=== PATIENT | male | born 1990 | race Two or more races ===

== ENCOUNTER 2024-06-28 04:25 | Emergency (ER) | payer MEDICAID, SELFPAY ==
[2024-06-28 04:25] VITALS: BMI 33.0
[2024-06-28 04:48] VITALS: BP 135/66; PULSE 109; RESP 18; TEMP 36.9; O2SAT 95
--- NOTE | 2024-06-28 04:53 | PD.EDRME ---
Rapid Medical Screening Exam RME Arrival date/time: 06/28/24 04:25 34 year old male present to ED for c/o of abd pain, n/v/d I have greeted and performed a focused initial assessment of this patient. A comprehensive ED assessment and evaluation of the patient, analysis of all test results, and completion of the medical decision making process will be conducted by additional ED providers. Chief Complaint: Abdominal Pain Vital signs: Vital Signs Temperature 98.5 F 06/28/24 04:48 Pulse Rate 109 H 06/28/24 04:48 Respiratory Rate 18 06/28/24 04:48 Blood Pressure 135/66 H 06/28/24 04:48 Pulse Oximetry (%) 95 06/28/24 04:48 Oxygen Delivery Method Room Air 06/28/24 04:48
[2024-06-28] MEDS: ONDANSETRON ODT 4 MG TABRAP PO (04:58)
[2024-06-28 05:18] LABS: Basophils # (Auto) 0.1 Thou/mm3 (0.0-0.2); Basophils % (Auto) 1 % (0-2.5); Eosinophils # (Auto) 0.2 Thou/mm3 (0.0-0.5); Eosinophils % (Auto) 1 % (0-10); Hematocrit 50.8 % (41.0-53.0); Immature Granulocytes % (Auto) 0 % (0-0); Immature Granulocytes Auto 0.06 Thou/mm3 (0.00-0.00); Lymphocytes # (Auto) 2.4 Thou/mm3 (1.0-4.8); Lymphocytes % (Auto) 15 % (10-50); Mean Corpuscular HGB Conc 33.5 g/dl (31.0-37.0); Mean Corpuscular Hemoglobin 28.2 pg (25.0-35.0); Mean Corpuscular Volume 84 fL (80-100); Monocytes # (Auto) 0.8 Thou/mm3 (0.0-0.8); Monocytes % (Auto) 5 % (0-12); Neutrophils # (Auto) 13.2 Thou/mm3 (1.8-7.7); Neutrophils % (Auto) 79 % (37-80); Nucleated Red Blood Cell % 0 /100 WBC (0); Platelet Count 256 Thou/mm3 (140-440); RDW Standard Deviation 37.9 fL (35.1-43.9); Red Blood Count 6.02 Miln/mm3 (4.50-5.90); White Blood Count 16.6 Thou/mm3 (3.8-10.6)
[2024-06-28 05:49] LABS: Collection Type, Urine Voided; WBC,Urine 0 /hpf (0-5)
[2024-06-28 05:55] LABS: Alanine Aminotransferase 27 U/L (10-49); Albumin, Serum 5.5 gm/dL (3.5-5.0); Albumin/Globulin Ratio 1.8 (1.2-2.2); Alkaline Phosphatase 79 U/L (46-116); Anion Gap 14 (7-16); Aspartate Amino Transferase 16 U/L (0-34); BUN/Creatinine Ratio 16 Ratio (12-20); Bilirubin,Total 0.4 mg/dL (0.3-1.2); Blood Urea Nitrogen 16 mg/dL (9-23); Calcium 10.3 mg/dL (8.3-10.6); Calcium (Corrected) 10.3 mg/dL (8.5-10.1); Carbon Dioxide 24.4 mMol/L (20.0-31.0); Chloride 100 mMol/L (98-107); Estimated Creatinine Clearance 128.3 mL/min (>60); Globulin 3.1 gm/dL (2.3-3.5); Glucose 200 mg/dL (74-106); Lipase 29 U/L (12-53); Osmolality,Calculated 282 (275-295); Potassium 3.9 mMol/L (3.4-5.1); Sodium 138 mMol/L (136-145); Total Protein 8.6 gm/dL (5.7-8.2); eGFR > 60 See Note
[2024-06-28 05:59] LABS: Bilirubin,Urine Negative (Negative); Blood,Urine Negative (Negative); Clarity,Urine Clear (Clear/Hazy); Color,Urine Lt-Yellow (Lt Yel-Yel); Glucose, Urine 4+ (Negative); Ketones,Urine 3+ (Negative); Leukocyte Esterase,Urine Negative (Negative); Nitrite,Urine Negative (Negative); PH,Urine 5.5 (5.0-7.0); Protein,Urine Trace (Neg - Trace); RBC,Urine 3 /hpf (0-3); Specific Gravity,Urine 1.044 (1.001-1.035); Squamous Epithelial Cell,Urine < 1 /hpf (0-5); Urobilinogen,Urine Negative mg/dL (0.0-1.0)
[2024-06-28 06:23] VITALS: BP 124/83; PULSE 94; RESP 18; TEMP 37.3; O2SAT 97
--- NOTE | 2024-06-28 06:28 | PD.EDABDPN ---
ED Abdominal Pain RME/HPI General Chief Complaint: Abdominal Pain Stated complaint: ABD PAIN, NAUSEA AND VOMITING X 1DAY Time seen by provider: 06/28/24 05:03 Arrival date/time: 06/28/24 04:25 34-year-old male presents emergency department complaints of nausea vomiting and diarrhea ongoing since 10 PM there are no other associated symptoms or aggravating factors no other modifying factors, patient denies taking medication before coming to ER today Limitations: no limitations RME / HPI RME / HPI narrative: 06/28/24 04:25 34 year old male present to ED for c/o of abd pain, n/v/d I have greeted and performed a focused initial assessment of this patient. A comprehensive ED assessment and evaluation of the patient, analysis of all test results, and completion of the medical decision making process will be conducted by additional ED providers. Related Data Home Medications ?Medication ?Instructions ?Recorded ?Confirmed no hx meds ##0 09/26/15 Previous Rx's ?Medication ?Instructions ?Recorded Hydrocodone/Acetaminophen * (NORCO 1 tab PO Q4H PRN pain #20 tabs 09/26/15 5/325 *) ibuprofen 600 mg tablet 600 mg PO Q6HR PRN PAIN #40 tabs 09/26/15 ibuprofen 800 mg tablet 800 mg PO TID PRN pain #30 tabs 09/28/22 ibuprofen 600 mg tablet 600 mg PO Q6H #30 tabs 06/28/24 loperamide 2 mg capsule (Imodium 2 mg PO Q6H PRN loose stool #14 06/28/24 A-D) caps ondansetron 4 mg disintegrating 4 mg PO Q8H PRN nausea and 06/28/24 tablet vomiting #10 tabs Allergies Allergy/AdvReac Type Severity Reaction Status Date / Time No Known Allergies Allergy Mild Uncoded 04/03/17 22:35 Review of Systems Review of Systems Systems Reviewed: All systems reviewed, normal except as documented Constitutional Constitutional: Reports system reviewed and no additional complaints, except as documented, Denies fever(s) and Denies headache(s) Eyes Eyes: Reports system reviewed and no additional complaints, except as documented and Denies blurry vision ENT Ears, Nose, Mouth, and Throat: Reports system reviewed and no additional complaints, except as documented, Denies headache(s), Denies nasal congestion and Denies nasal discharge Cardiovascular Cardiovascular: Reports system reviewed and no additional complaints, except as documented, Denies chest pain and Denies dyspnea Respiratory Respiratory: Reports system reviewed and no additional complaints, except as documented, Denies chest congestion, Denies cough and Denies dyspnea Gastrointestinal Gastrointestinal: Reports system reviewed and no additional complaints, except as documented and Denies abdominal pain Integumentary/Breasts Skin/Breast: Reports system reviewed and no additional complaints, except as documented and Denies rash Neurologic Neurologic: Reports system reviewed and no additional complaints, except as documented, Reports as per HPI and Denies headache(s) Past Medical History Past Medical History NEUROLOGIC: Negative Neurological Disorders CARDIAC: Negative Cardiac Disorders ED Exam General Limitations: Present no limitations General appearance: Present alert and in no apparent distress Head Head exam: Present atraumatic Eye Eye exam: Present normal appearance, PERRL and EOMI ENT ENT exam: Present normal exam, normal oropharynx and mucous membranes moist Neck Neck exam: Present normal inspection, full ROM and trachea midline Chest Chest inspection: Present normal inspection and symmetric chest wall rise Respiratory Respiratory exam: Present normal lung sounds bilaterally; Absent respiratory distress Cardiovascular Cardiovascular exam: Present regular rate, normal rhythm and normal heart sounds Abdominal Exam Abdominal exam: Present soft and normal bowel sounds; Absent distention, tenderness, guarding, rebound, rigidity, Merrill's sign or tenderness at McBurney's Point Abdominal tenderness: Absent RUQ or RLQ Extremities Exam Extremities exam: Present normal inspection and full ROM Back Exam Back exam: Present normal inspection and full ROM Neurological Exam Neurological exam: Present alert, oriented X3 and CN II-XII intact Psychiatric Psychiatric exam: Present normal affect and normal mood Skin Skin exam: Present warm, dry, intact and normal color Course Quality Measures none Orders Category Date Time Status CBC Stat Lab 06/28/24 05:04 Completed CMP [Comprehensive Metabolic Panel] Stat Lab 06/28/24 05:04 Completed Lipase Stat Lab 06/28/24 05:04 Completed UA [Urinalysis] Stat Lab 06/28/24 05:06 Completed Ondansetron Odt [Zofran Odt] Med 06/28/24 04:53 Discontinued 4 mg PO X1 ONE Vital Signs Vital signs: Vital Signs Temperature 98.5 F 06/28/24 04:48 Pulse Rate 109 H 06/28/24 04:48 Respiratory Rate 18 06/28/24 04:48 Blood Pressure 135/66 H 06/28/24 04:48 Pulse Oximetry (%) 95 06/28/24 04:48 Oxygen Delivery Method Room Air 06/28/24 04:48 O2 saturation 95% room air within normal limits Abdominal Pain MDM MDM Narrative MDM Narrative:: 34-year-old male presents emergency department complaints of nausea vomiting and diarrhea ongoing since 10 PM there are no other associated symptoms or aggravating factors no other modifying factors, patient denies taking medication before coming to ER today On exam patient well-appearing patient does not appear ill or toxic lab work was obtained by my colleague Symptoms highly consistent with viral illness Patient be discharged home with medication for vomiting and diarrhea I explained to the patient if he develops any right-sided abdominal pain or fever to return to the ER immediately for further evaluation Patient data External records reviewed:: [facility] previous records Clinical information provided by:: patient Social determinants that could affect healthcare access:: none Patient has the following chronic illnesses:: None How is presenting disease/condition affected by chronic disease/condition?: no chronic disease Evaluation data The following diagnostics were reviewed and interpreted by me:: lab results Lab and/or radiology exams considered but not ordered:: Labs obtained Interpretation Summary: Reviewed by me Medications / Prescriptions Medications or Prescriptions considered but not ordered:: Given Medication administrations:: Medication Administration History Discontinued Medications Ondansetron HCl (Ondansetron Odt 4 Mg Tabrap) 4 mg PO X1 ONE; Protocol Stop: 06/28/24 04:54 Last Admin: 06/28/24 04:58 Dose: 4 mg Documented By: RC Given Consultations Consultation(s) initiated? (list below): No Diagnosis Differential diagnosis abdominal pain: abdominal pain, acute appendicitis, gastroenteritis and pancreatitis Most likely diagnosis given after review of the tests above:: Abdominal pain Admission Indicated Admission indicated?: not indicated Admission Request Was there a request for admission?: No Disposition Plan Disposition Plan: Discharge Discharge Attestation Discharge Attestation: The patient and all family members were given an opportunity to ask questions and understood the discharge instructions. Discharge instructions specifically effects, indications for sooner follow up or return to the emergency department, and the expected course of current diagnosis. Patient condition: Stable Discharge Plan Plan Patient Disposition: HOME (Self Care) Disposition Comment: Stable Prescriptions/Referrals Prescriptions/Med Rec: New loperamide [Imodium A-D] 2 mg capsule 2 mg PO Q6H PRN (Reason: loose stool) Qty: 14 0RF ibuprofen 600 mg tablet 600 mg PO Q6H Qty: 30 0RF ondansetron 4 mg tablet,disintegrating 4 mg PO Q8H PRN (Reason: nausea and vomiting) Qty: 10 0RF No Action ibuprofen 600 MG tablet 600 mg PO Q6HR PRN (Reason: PAIN) Qty: 40 0RF Hydrocodone/Acetaminophen * (NORCO 5/325 *) 1 TAB tablet 1 tab PO Q4H PRN (Reason: pain) Qty: 20 0RF no hx meds Qty: 0 ibuprofen 800 mg tablet 800 mg PO TID PRN (Reason: pain) Qty: 30 0RF Referrals: Temporary Provider,ED [Primary Care Provider] - 06/29/24 Problem List Clinical Impression: Abdominal pain Patient/Caregiver Discharge Instructions Education Materials: Abdominal Pain Additional Instructions: Please follow up with your primary care doctor in the next 24-48hrs for any worsening symptoms return here immediately Print Language: Sri Lankan Stand Alone Forms: Rajni Award Info., Patient Portal Info Letter PA/MATERIALS CLERK Supervising Physician PA/MARY ANN Supervising Physician: Dr. ireland
== END 2024-06-28 06:33 | disposition home or self-care (01) ==
LOC: SERX 07:03
PROVIDERS: Physician Assistant; Emergency Provider Emergency Medicine; PCP Family Medicine
DX: R10.9 Unspecified abdominal pain (principal)
CPT/HCPCS: 36415; 80053; 81001; 83690; 85025; 99283; Q0162

== ENCOUNTER 2025-01-07 05:08 | Emergency (ER) | payer MEDICAID, SELFPAY ==
[2025-01-07 05:28] VITALS: BP 138/90; PULSE 73; RESP 17; TEMP 36.8; O2SAT 97; BMI 34.9
--- NOTE | 2025-01-07 07:10 | PD.EDEAR ---
ED Ear RME/HPI General Chief complaint: Ear Stated complaint: L EAR PAIN Time Seen by Provider: 01/07/25 06:19 Arrival date/time: 01/07/25 05:08 This is a 34-year-old male that comes in with complaints of left ear pain for the last few days. patient states his ears feel itchy sometimes. Patient has no other complaints. Patient denies any past medical history. Related Data Home Medications ?Medication ?Instructions ?Recorded ?Confirmed no hx meds ##0 09/26/15 Previous Rx's ?Medication ?Instructions ?Recorded Hydrocodone/Acetaminophen * (NORCO 1 tab PO Q4H PRN pain #20 tabs 09/26/15 5/325 *) ibuprofen 600 mg tablet 600 mg PO Q6HR PRN PAIN #40 tabs 09/26/15 ibuprofen 800 mg tablet 800 mg PO TID PRN pain #30 tabs 09/28/22 ibuprofen 600 mg tablet 600 mg PO Q6H #30 tabs 06/28/24 loperamide 2 mg capsule (Imodium 2 mg PO Q6H PRN loose stool #14 06/28/24 A-D) caps ondansetron 4 mg disintegrating 4 mg PO Q8H PRN nausea and 06/28/24 tablet vomiting #10 tabs ibuprofen 800 mg tablet 800 mg PO Q6H PRN pain #14 tabs 01/07/25 Allergies Allergy/AdvReac Type Severity Reaction Status Date / Time No Known Allergies Allergy Verified 01/07/25 05:10 Review of Systems Review of Systems Systems Reviewed: All systems reviewed, normal except as documented Past Medical History Past Medical History NEUROLOGIC: Negative Neurological Disorders CARDIAC: Negative Cardiac Disorders ED Exam Narrative Physical exam: VITAL SIGNS: Reviewed. GENERAL APPEARANCE: Alert and interactive, follows commands, no acute distress, HEAD AND FACE: Non-traumatic. ENT: PERRL, conjuctiva pink and clear, eyelid no trauma, Mucous membrane moist. left tm erythemic, bulging, cerrumen impaction right tm with foreighn body in ear NECK: Supple, nontender, no nuchal rigidity. CHEST: No tenderness, no crepitus, no paradoxical movement, no retractions. LUNGS: Clear, well ventilated, symmetric, no rales, no wheezing, no rhonchi, no stridor, good breath sounds bilaterally. HEART: Regular rate, regular rhythm, no murmur, no gallops. ABDOMEN: Soft, nondistended, no guarding, nontender, no rebound, no masses, NEUROLOGICAL: Gross motor function intact sensory function intact, Appropriate for age. MUSCULOSKELETAL: low back nontender, full range of motion. EXTREMITIES: No redness no swelling no skin breakdown on bilateral foot and leg. Distal neurovascular status intact bilateral foot SKIN: Color pink, dry, no rash, no lacerations, no abrasions, no contusions. Course Quality Measures none Orders Category Date Time Status Irrigate [Wound Care] NOW Care 01/07/25 06:57 Completed Ibuprofen Tab [Motrin Tab] Med 01/07/25 07:10 Discontinued 800 mg PO X1 ONE cefTRIAXone [Rocephin] 1,000 mg Med 01/07/25 07:09 Discontinued Lidocaine 1% 20 ml [Xylocaine 1% 20 ML] 2.1 ml IM X1 Vital Signs Vital signs: Vital Signs Temperature 98.2 F 01/07/25 05:28 Pulse Rate 73 01/07/25 05:28 Respiratory Rate 17 01/07/25 05:28 Blood Pressure 138/90 H 01/07/25 05:28 Pulse Oximetry (%) 97 01/07/25 05:28 Oxygen Delivery Method Room Air 01/07/25 05:28 Ear MDM Narrative MDM Narrative:: Right TM irrigated because there is a white foreign body in there. It was irrigated with some warm saline. Patient stated that it was hurting him and we had to stop. Patient did not want it irrigated anymore. I told patient he can use [id number] drops of Debrox. I explained to him that he needs to see his primary provider and make an appointment. Patient verbalized understanding. Patient will be given Rocephin and ibuprofen. Patient will be sent with a prescription of ofloxacin and Augmentin. Patient explained the importance of follow-up with his primary provider. Patient told to come back to the emergency room if symptoms change or worsen. Patient verbalized understanding and is comfortable plan of care. Patient data External records reviewed:: [facility] previous records Clinical information provided by:: patient Social determinants that could affect healthcare access:: none Patient has the following chronic illnesses:: none How is presenting disease/condition affected by chronic disease/condition?: no chronic disease Evaluation data The following diagnostics were reviewed and interpreted by me:: other (specify) (none ) Lab and/or radiology exams considered but not ordered:: none Interpretation Summary: see note Medications / Prescriptions Medications or Prescriptions considered but not ordered:: none Medication administrations:: Medication Administration History Discontinued Medications Ceftriaxone Sodium 1,000 mg/ (Lidocaine HCl 2.1 ml) 0 mg IM X1 ONE Stop: 01/07/25 07:10 Last Admin: 01/07/25 07:38 Dose: 2.1 mg Documented By: ER Comments: Ibuprofen (Ibuprofen Tab 400 Mg Tablet) 800 mg PO X1 ONE Stop: 01/07/25 07:11 Last Admin: 01/07/25 07:39 Dose: 800 mg Documented By: ER see mar Consultations Consultation(s) initiated? (list below): No Diagnosis Most likely diagnosis given after review of the tests above:: otiitis media, otitis externa Admission Indicated Admission indicated?: not indicated Admission Request Was there a request for admission?: No Disposition Plan Disposition Plan: Discharge Discharge Attestation Discharge Attestation: The patient and all family members were given an opportunity to ask questions and understood the discharge instructions. Discharge instructions specifically effects, indications for sooner follow up or return to the emergency department, and the expected course of current diagnosis. Patient condition: Stable Discharge Plan Plan Patient Disposition: HOME (Self Care) Patient condition on transfer: Stable Prescriptions/Referrals Prescriptions/Med Rec: New ibuprofen 800 mg tablet 800 mg PO Q6H PRN (Reason: pain) Qty: 14 0RF No Action ibuprofen 600 MG tablet 600 mg PO Q6HR PRN (Reason: PAIN) Qty: 40 0RF Hydrocodone/Acetaminophen * (NORCO 5/325 *) 1 TAB tablet 1 tab PO Q4H PRN (Reason: pain) Qty: 20 0RF no hx meds Qty: 0 ibuprofen 800 mg tablet 800 mg PO TID PRN (Reason: pain) Qty: 30 0RF loperamide [Imodium A-D] 2 mg capsule 2 mg PO Q6H PRN (Reason: loose stool) Qty: 14 0RF ibuprofen 600 mg tablet 600 mg PO Q6H Qty: 30 0RF ondansetron 4 mg tablet,disintegrating 4 mg PO Q8H PRN (Reason: nausea and vomiting) Qty: 10 0RF Problem List Clinical Impression: Otitis media, Left otitis externa, Acute foreign body of right ear Patient/Caregiver Discharge Instructions Discharge Activity: activity as tolerated Education Materials: ED EAR CANAL Foreign Body, ED Otitis Media Antibiotic ..., ED External Ear Infection (Adult) Additional Instructions: Follow-up with primary provider in 1 to 2 days. Come back to the emergency room if symptoms change or worsen. If ear infection does not get better patient will need to be seen by specialist. Print Language: Occitan Stand Alone Forms: Rajni Award Info., Patient Portal Info Letter PA/MARY ANN Supervising Physician PA/MARY ANN Supervising Physician: [email or web address]
[2025-01-07] MEDS: cefTRIAXone 1,000 MG, LIDOCAINE 1% 20 ML 2.1 ML IM (07:38)
[2025-01-07] MEDS: IBUPROFEN TAB 400 MG TABLET 800 MG PO (07:39)
[2025-01-07 08:24] VITALS: BP 122/80; PULSE 62; RESP 18; TEMP 36.4; O2SAT 97
== END 2025-01-07 08:25 | disposition home or self-care (01) ==
LOC: SERX 07:35
PROVIDERS: Emergency Provider Emergency Medicine; PCP Family Medicine
DX: H60.92 Unspecified otitis externa, left ear (principal); H66.92 Otitis media, unspecified, left ear; T16.1XXA Foreign body in right ear, initial encounter; W44.9XXA Unspecified foreign body entering into or through a natural orifice, initial encounter
CPT/HCPCS: 96372; 99283; J0696; J3490; A9270